=== PATIENT | female | born 1990 | race Caucasian/White ===

== ENCOUNTER 2016-10-27 15:50 | Emergency (ER) | payer MEDICAID ==
[2015-10-26 04:29] VITALS: BMI 25.8
[~2016-10-27 15:50] MED LIST: HYDROCODON-ACE1 EAC7 PO; IBUPROFEN600 MG PO; PRENAVITE1 TAB PO
[2016-10-27 17:05] LABS: BASOPHILS 0.1 % (0.0-2.0); EOSINOPHILS 0.7 % (0-7); HEMATOCRIT 43.6 % (36.0-48.0); HEMOGLOBIN 14.4 g/dL (12-16); IMMATURE GRANULOCYTES 0.1 % (0-5); LYMPHOCYTES 38.6 % (15-50); MCH 30.7 pg (26.0-34.0); MEAN PLATELET VOLUME 11.3 fL (7.4-10.4); MONOCYTES 7.3 % (2-11); NEUTROPHILS 53.2 % (40-80); RBC 4.69 10x6/uL (4.00-5.40); RDW 13.5 % (11.5-14.5); WBC 6.7 10x3/uL (4.8-10.8)
[2016-10-27 17:07] LABS: PLATELET COUNT 204 10x3/uL (130-400)
[2016-10-27 17:12] LABS: HCG SERUM POSITIVE (NEGATIVE)
== END 2016-10-27 22:35 | disposition home or self-care (01) ==
LOC: D.ER 15:50
PROVIDERS: Family Medicine
DX: N93.9 Abnormal uterine and vaginal bleeding, unspecified (principal)

== ENCOUNTER → 2018-07-07 17:30 | Outpatient (CLI) | payer MEDICAID ==
[2015-10-26 04:29] VITALS: BMI 25.8
[2018-07-07 19:25] LABS: APPEARANCE CLEAR (CLEAR); BILIRUBIN NEGATIVE (NEGATIVE); COLOR YELLOW (YELLOW); GLUCOSE NEGATIVE (NEGATIVE); KETONE MODERATE mg/dL (NEGATIVE); NITRITE NEGATIVE (NEGATIVE); PROTEIN 1+ mg/dL (NEGATIVE); UROBILINOGEN NORMAL (NORMAL)
[2018-07-07 19:27] LABS: BACTERIA MODERATE /hpf (NONE SEEN); CALCIUM OXALATE CRYSTALS 0-5 /hpf (NONE SEEN); RED CELLS - URINE 0-5 /hpf (0-5); WHITE CELLS - URINE 0-5 /hpf (0-5)
[2018-07-07 19:28] LABS: MUCUS <1+ /lpf (NONE SEEN)
== END | disposition home or self-care (01) ==
LOC: D.LDO 17:30
PROVIDERS: Obstetrics & Gynecology
DX: O26.893 Other specified pregnancy related conditions, third trimester (principal); Z3A.36 36 weeks gestation of pregnancy

== ENCOUNTER 2018-08-06 05:37 | Inpatient (IN) | payer MEDICAID ==
[~2018-08-06] VITALS: Ht 180.3 cm; Wt 88.0 kg
[2018-08-06 07:23] LABS: HEMATOCRIT 39.1 % (36.0-48.0); MCH 29.1 pg (26.0-34.0); MCHC 33.2 g/dL (31.0-37.0); MCV 87.7 fL (80.0-100.0); MEAN PLATELET VOLUME 12.7 fL (7.4-10.4); RBC 4.46 10x6/uL (4.00-5.40); RDW 14.2 % (11.5-14.5); WBC 9.1 10x3/uL (4.8-10.8)
[2018-08-06 07:26] LABS: UDS - AMPHET NEGATIVE QUAL (NEGATIVE); UDS - BARB NEGATIVE QUAL (NEGATIVE); UDS - BENZO NEGATIVE QUAL (NEGATIVE); UDS - COCAINE NEGATIVE QUAL (NEGATIVE); UDS - OPIATE NEGATIVE QUAL (NEGATIVE); UDS - PCP NEGATIVE QUAL (NEGATIVE); UDS - THC NEGATIVE QUAL (NEGATIVE)
[2018-08-06 08:08] LABS: APPEARANCE HAZY (CLEAR); COLOR YELLOW (YELLOW)
[2018-08-06 08:09] LABS: BILIRUBIN NEGATIVE (NEGATIVE); GLUCOSE NEGATIVE (NEGATIVE); KETONE NEGATIVE (NEGATIVE); NITRITE NEGATIVE (NEGATIVE); PROTEIN NEGATIVE (NEGATIVE); UROBILINOGEN NORMAL (NORMAL)
[2018-08-06 08:11] LABS: BACTERIA MODERATE /hpf (NONE SEEN); EPITHELIAL CELLS 0-5 /hpf (0-5); MUCUS <1+ /lpf (NONE SEEN); RED CELLS - URINE OCC /hpf (0-5); WHITE CELLS - URINE 0-5 /hpf (0-5)
[2018-08-06 11:15] VITALS: BP 97/53; BMI 27.1
[2018-08-06 20:12] VITALS: BP 119/70
[2018-08-07 07:16] LABS: BASOPHILS 0.2 % (0-2); EOSINOPHILS 0.4 % (0-7); HEMATOCRIT 32.1 % (36.0-48.0); IMMATURE GRANULOCYTES 0.3 % (0-5); LYMPHOCYTES 25.1 % (15-50); MCH 28.5 pg (26.0-34.0); MCHC 31.8 g/dL (31.0-37.0); MEAN PLATELET VOLUME 12.8 fL (7.4-10.4); MONOCYTES 7.8 % (2-11); NEUTROPHILS 66.2 % (40-80); PLATELET COUNT 142 10x3/uL (130-400); RBC 3.58 10x6/uL (4.00-5.40); RDW 14.3 % (11.5-14.5); WBC 9.8 10x3/uL (4.8-10.8)
[2018-08-07 07:25] LABS: HEMOGLOBIN 10.2 g/dL (12-16); MCV 89.7 fL (80.0-100.0)
[2018-08-07 08:04] VITALS: BP 120/77
[2018-08-07 16:17] LABS: RAPID PLASMA REAGIN Reactive (Non Reactive); TREPONEMA PALLIDUM AB Positive (Negative)
[2018-08-07 19:22] VITALS: Ht 180.3 cm; Wt 88.0 kg
== END 2018-08-07 19:45 | disposition home or self-care (01) | DRG 805 ==
LOC: D.LDO 05:37 → D.LD 06:54
PROVIDERS: Obstetrics & Gynecology; ADMIT Obstetrics & Gynecology
PROC: 10E0XZZ Delivery of Products of Conception, External Approach (ICD-10-PCS; principal; 2018-08-06)
PROC: 0HQ9XZZ Repair Perineum Skin, External Approach (ICD-10-PCS; 2018-08-06)
DX: O98.12 Syphilis complicating childbirth (principal); O75.3 Other infection during labor; Z37.0 Single live birth; D62 Acute posthemorrhagic anemia; A52.8 Late syphilis, latent; Z3A.40 40 weeks gestation of pregnancy; O70.0 First degree perineal laceration during delivery; O99.02 Anemia complicating childbirth

== ENCOUNTER → 2018-08-08 11:43 | Outpatient (CLI) | payer MEDICAID ==
[2018-08-07 19:22] VITALS: BMI 27.1
== END | disposition home or self-care (01) ==
LOC: D.LDO 11:43
DX: O26.899 Other specified pregnancy related conditions, unspecified trimester (principal); Z3A.00 Weeks of gestation of pregnancy not specified